=== PATIENT | female | born 1980 | race Caucasian/White ===

== ENCOUNTER 2023-12-30 18:20 | Emergency (ER) | payer OTHER, SELFPAY ==
[2023-12-30 18:24] VITALS: BP 157/99
[2023-12-30 19:01] LABS: % Basophils 0.3 % (0-2); % Eosinophils 0.2 % (0-6); % Immature Granulocytes 0.3 % (0-0.5); % Lymphocytes 4.4 % (20.5-51.1); % Monocytes 3.4 % (1.7-9.3); % Neutrophils 91.4 % (42.2-75.2); Absolute Lymphocytes 0.5 10^3/uL (1.2-3.4); Absolute Monocytes 0.4 10^3/uL (0.1-0.6); Absolute Neutrophils 9.5 10^3/uL (1.4-6.5); Hematocrit 41.5 % (37.0-47.0); Hemoglobin 14.2 g/dL (12.0-16.0); Mean Corp Hgb Conc. 34.2 g/dL (33.0-37.0); Mean Corpuscular Volume 84.7 fL (81.0-99.0); Mean Platelet Volume 9.5 fL (7.4-10.4); Nucleated Red Blood Cells % 0 %; Platelet Count 268 10^3/uL (130-400); Red Cell Dist. Width 13.2 % (11.5-14.5); White Blood Cell Count 10.4 10^3/uL (4.8-10.8)
[2023-12-30 19:05] LABS: INR 1.06; PT 13.6 Sec (11.4-14.6)
[2023-12-30 19:06] LABS: ALT (SGPT) 16 U/L (0-35); AST (SGOT) 25 U/L (14-36); Albumin 4.2 g/dl (3.5-5.0); Alkaline Phosphatase 58 U/L (38-126); Blood Urea Nitrogen 20 mg/dl (7-17); Calcium 9.1 mg/dl (8.4-10.2); Carbon Dioxide 21 mmol/L (22-30); Chloride 108 mmol/L (98-107); Glucose 105 mg/dl (70-99); Lipase 91 U/L (23-300); Potassium 3.6 mmol/L (3.5-5.1); Sodium 137 mmol/L (135-145); Total Bilirubin 0.7 mg/dl (0.2-1.3); Total Protein 7.2 g/dl (6.3-8.2); eGFR > 60.00
[2023-12-30 19:16] LABS: Troponin I < 0.012 ng/ml
[2023-12-30 21:55] VITALS: BMI 32.0
[2023-12-30 22:00] VITALS: BP 133/82
[2023-12-30] MEDS: NSS 1000 IV (22:15)
[2023-12-30] MEDS: MAALOX 45 PO (22:15)
[2023-12-30] MEDS: PROTONIX IV 40 MG IV (22:15)
[2023-12-30 23:00] VITALS: BP 132/86
--- NOTE | 2023-12-31 00:49 | ED.GENMED ---
History of Present Illness
General
Chief Complaint: Abdominal Pain
Source: patient
Exam Limitations: none
Time Seen by Provider: 12/30/23 20:53
Nursing documentation reviewed up to this point in time: agreed with
Travel History
Have you had any contact with someone who has COVID-19?: No
Do you have any symptoms of coronavirus? Fever > 100 degrees, chills, cough, shortness of breath, sore throat, loss of taste or smell, muscle aches, or headache?: No
History of Present Illness
History of Present Illness:
Patient status post cholecystectomy 3 years ago, presents ED secondary to recurrent upper abdominal pain associated nausea sensation as well as bloating over the past 2 days. Patient unfortunately has had number of similar symptoms since surgery,
and has number of outpatient CT scans. Patient has attempted to contact GI physician for an outpatient consultation, but receiving phone call for an appointment has been difficult. Denies fever or chills. Abdominal pain described as sharp, across
her abdomen, with intermittent bloating sensation. Patient states that her symptoms appear to be worse with certain meals. Symptoms are somewhat similar to when she had her gallbladder removed. Denies trauma. Denies recent change in medications
or diet.
Past History
Past History
ED Past Medical History: Asthma and Seizures
ED Past Surgical History: Other
Social History
Tobacco: Non-smoker
Drug: None
Personal:
Living: with family
Employment: Employed
Family History
Family History: Other
Review of Systems
Review of Systems
Allergies reviewed?: Yes
All Other Systems: ROS reviewed and negative except as documented in HPI and ROS
Constitutional: Reports no symptoms
EENT: Reports no symptoms
Respiratory: Reports no symptoms
Cardiac: Reports no symptoms
ABD/GI: Reports abdominal pain and nausea; Denies vomiting or diarrhea
: Reports no symptoms
Musculoskeletal: Reports no symptoms
Skin: Reports no symptoms
Neurological: Reports no symptoms
Phy Exam
Physical Exam
Physical Exam:
Physical Exam
General: no apparent distress, not acutely ill. afebrile.
Head: nc/at. eomi
Neck: supple. normal range of motion.
Heart: s1/s2 regular rate and rhythm, no murmur. equal radial pulses.
Lungs: no acute respiratory distress. clear bilaterally
Abdomen: normal bowel sounds. mild epigastric/RUQ tenderness to palpation.
Neuro: alert and oriented. no focal neurological deficits
Skin: no rash
Psychiatric: well kept. interactive and cooperative
Extremities: no edema. no calf tenderness.
Course
Orders/Labs/Results
Orders:
Orders
12/30/23 18:26
EKG [Electrocardiogram (*1)] Urgent
Reason for Study: Abdominal Pain
EKG- Treatment ONCE
12/30/23 18:35
Complete Blood Count/With Diff Urgent
Comprehensive Metabolic Panel Urgent
Lipase Urgent
Prothrombin Time Urgent
Troponin I Urgent
12/30/23 21:37
0.9% Sodium Chloride 1000 ml [Nss] 1,000 ml IV BOLUS
Mag Hydrox/Al Hydrox/Simeth [Maalox] 30 ml Phenobarb/Hyoscy/Atropine/Scop [] 10 ml Viscous Lidocaine 2% [Xylocaine Viscous Cup] 10 ml PO NOW
Pantoprazole [Protonix IV] 40 mg IV NOW STA
12/30/23 22:11
Mag Hydrox/Al Hydrox/Simeth [Maalox] 30 ml .ROUTE .STK-MED ONE
Phenobarb/Hyoscy/Atropine/Scop [] 10 ml .ROUTE .STK-MED ONE
12/30/23 22:12
Viscous Lidocaine 2% [Xylocaine Viscous Cup] 15 ml .ROUTE .STK-MED ONE
12/30/23 22:21
US Abdomen Complete/Upper Urgent
Comment:
Reason For Exam: RUQ pain
Abnormal Lab Results
12/30/23
18:35
Absolute Neuts (auto) 9.5 H 10^3/uL
(1.4-6.5)
Absolute Lymphs (auto) 0.5 L 10^3/uL
(1.2-3.4)
Neutrophils % 91.4 H %
(42.2-75.2)
Lymphocytes % 4.4 L %
(20.5-51.1)
Chloride 108 H mmol/L
(98-107)
Carbon Dioxide 21 L mmol/L
(22-30)
BUN 20 H mg/dl
(7-17)
Glucose 105 H mg/dl
(70-99)
12/30/23 18:35
12/30/23 18:35
Vital Signs
Initial and Last Documented VS:
Initial Vital Signs
Temp Pulse Resp BP Pulse Ox
97.9 F 110 17 157/99 99
12/30/23 18:24 12/30/23 18:24 12/30/23 18:24 12/30/23 18:24 12/30/23 18:24
Last Documented Vital Signs
Temp Pulse Resp BP Pulse Ox
97.9 F 82 17 132/86 97
12/30/23 18:24 12/30/23 23:00 12/30/23 23:00 12/30/23 23:00 12/30/23 23:00
MDM/Problems Addressed
MDM/Problems Addressed:
Patient's recent CT abdomen pelvis report reviewed.
Patient with an unremarkable workup in ED, including blood work and abdominal ultrasound. History and exam consistent with likely gastritis versus ulcer versus less likely remnants of gallstones. Otherwise, patient is afebrile, hemodynamically
stable, and appears comfortable at time of discharge. GI office contacted via [facility] for an urgent outpatient appointment. Advised to return to ED with worsening symptoms, i.e. fever/worsening pain/vomiting. In the meantime, advised dietary
modification, PPI, along with Carafate. Patient expresses understanding at time of discharge to the care of her family.
*Critical Care Note
Total Time (30-74mins, 75-104mins- exclusive of procedures): Not Applicable
ED Attending Note
-
Portions of this chart may have been created with voice recognition software.� Occasional wrong word or��sound alike� substitutions may have occurred due to the inherent limitations of voice recognition software.
Discharge Plan
Departure
Patient Disposition: Home (Routine Discharge)
Date of Disposition: 12/31/23
Time of Disposition: 00:49
Patient with high blood pressure during this ER visit?: Yes
Discharge Problem:
Abdominal pain
Instructions: [place] Diet, Gastritis (DC), Abdominal Pain
Prescriptions:
New
sucralfate [Carafate] 100 mg/mL suspension
10 ml PO QID Qty: 400 0RF
No Action
cetirizine 10 MG tablet
10 mg PO PRN PRN (Reason: allergies)
lamotrigine 25 MG tablet
125 mg PO BID
albuterol sulfate [Ventolin HFA] 90 MCG/PUFF HFA aerosol inhaler
2 puff inhalation PRN PRN (Reason: sob)
omeprazole 20 MG capsule,delayed release(DR/EC)
20 mg PO BID
tramadol 50 MG tablet
25 mg PO TID PRN (Reason: pain) Qty: 15 0RF
hydrocodone-acetaminophen 1 TABLET tablet
1 - 2 tab PO Q4HPRN PRN (Reason: moderate to severe pain) Qty: 20 0RF
Referrals:
Rere Baker MD [Active] -
Jose Arizmendi MD [Family Provider] -
Activity Restrictions/Additional Instructions:
As discussed, please follow-up with your primary care physician and/or referred GI physician for further evaluation. Your prescription has been sent electronically to [facility] in [place].
Interventions
Interventions:
*Risk Screen - Suicide Last Done: 12/30/23 18:25
*General Assessment Last Done: 12/30/23 18:25
*Neglect/Abuse Screening Last Done: 12/30/23 18:25
ED- Fall Risk Assessment Last Done: 12/30/23 21:55
*ED COVID-19 Vaccine History Last Done: 12/30/23 18:25
*Nursing Disposition Last Done: 12/31/23 01:15
AJ-Gsarvh-Btgkgnnoiy Assessment Last Done: 12/30/23 21:55
Discharge Date and Time
Discharge Date/Time: 12/31/23 01:16
Print Language: KOREAN
== END 2023-12-31 01:16 | disposition home or self-care (01) ==
LOC: EMR 18:20
PROVIDERS: Student in an Organized Health Care Education/Training Program; EMERGENCY PHYSICIAN Emergency Medicine; FAMILY PHYSICIAN Family Medicine
DX: R10.10 Upper abdominal pain, unspecified (principal); R03.0 Elevated blood-pressure reading, without diagnosis of hypertension
CPT/HCPCS: 99285; 96374; 76700; 80053; 83690; 84484; 85025; 85610; 93005

== ENCOUNTER → 2024-02-09 06:31 | Day surgery (SDC) | payer OTHER, SELFPAY | LOC: GI 06:31 | PROVIDERS: ATTENDING PHYSICIAN Internal Medicine | DX: Z12.11 Encounter for screening for malignant neoplasm of colon (principal); K62.89 Other specified diseases of anus and rectum; R14.0 Abdominal distension (gaseous); R10.13 Epigastric pain; D12.5 Benign neoplasm of sigmoid colon; K63.5 Polyp of colon; K29.50 Unspecified chronic gastritis without bleeding; K31.7 Polyp of stomach and duodenum; K44.9 Diaphragmatic hernia without obstruction or gangrene | CPT/HCPCS: 45385; 43239; 88305; 88342 ==

== ENCOUNTER 2025-01-05 21:46 | Observation (INO) | payer OTHER, SELFPAY ==
[2025-01-05] VITALS (9 sets, daily range): BP systolic 120–156; BP diastolic 72–103; BMI 29.3; BMI 28.3
[2025-01-05 14:36] LABS: % Basophils 0.2 % (0-2); % Immature Granulocytes 0.7 % (0-0.5); % Lymphocytes 4.5 % (20.5-51.1); % Monocytes 12.5 % (1.7-9.3); % Neutrophils 82.1 % (42.2-75.2); Absolute Lymphocytes 0.3 10^3/uL (1.2-3.4); Absolute Monocytes 0.7 10^3/uL (0.1-0.6); Absolute Neutrophils 4.6 10^3/uL (1.4-6.5); Hemoglobin 13.7 g/dL (12.0-16.0); Mean Corp Hgb Conc. 34.3 g/dL (33.0-37.0); Mean Corpuscular Hgb 28.9 pg (27.0-31.0); Mean Corpuscular Volume 84.4 fL (81.0-99.0); Mean Platelet Volume 9.4 fL (7.4-10.4); Nucleated Red Blood Cells % 0 %; Platelet Count 252 10^3/uL (130-400); Red Blood Cell Count 4.74 10^6/uL (4.20-5.40); Red Cell Dist. Width 13.2 % (11.5-14.5); White Blood Cell Count 5.6 10^3/uL (4.8-10.8)
[2025-01-05 14:57] LABS: ALT (SGPT) 16 U/L (0-35); AST (SGOT) 23 U/L (14-36); Albumin 4.5 g/dl (3.5-5.0); Alkaline Phosphatase 57 U/L (38-126); Blood Urea Nitrogen 17 mg/dl (7-17); Calcium 9.7 mg/dl (8.4-10.2); Carbon Dioxide 23 mmol/L (22-30); Chloride 106 mmol/L (98-107); Glucose 138 mg/dl (70-99); Lipase 92 U/L (23-300); Potassium 3.8 mmol/L (3.5-5.1); Sodium 137 mmol/L (135-145); Total Bilirubin 0.6 mg/dl (0.2-1.3); Total Protein 7.6 g/dl (6.3-8.2); eGFR > 60.00
[2025-01-05] MEDS: DILAUDID 0.5 MG IV ×3 (17:55→23:02)
[2025-01-05] MEDS: NSS 1000 IV ×2 (17:56→22:55)
[2025-01-05] MEDS: PROTONIX IV 40 MG IV (17:56)
[2025-01-05] MEDS: ZOFRAN 4 MG IV (17:56)
--- NOTE | 2025-01-05 18:00 | ED.GENMED ---
History of Present Illness
General
Chief Complaint: Abdominal Symptoms
Source: patient and family
Exam Limitations: none
Time Seen by Provider: 01/05/25 17:14
History of Present Illness
History of Present Illness:
44-year-old female presents with mid upper abdominal pain with nausea and vomiting, similar in the past when she had her gallbladder out, states after her gallbladder was that she had to go back and have a stone removed, she has also had a
colonoscopy with removal of polyps, does not drink or smoke does have seizures, has reflux as well, does feel some burning in her mid abdomen no chest pain, no lower abdominal pain
Past History
Past History
ED Past Medical History: Asthma and Seizures
ED Past Surgical History: Cholecystectomy
Social History
Tobacco: Non-smoker
Alcohol: None
Drug: None
Personal:
Living: with family
Employment: Employed
Family History
Family History: Other
Review of Systems
Review of Systems
All Other Systems: Not applicable
Constitutional: Denies fever or fatigue
EENT: Reports no symptoms
Respiratory: Reports no symptoms
Cardiac: Reports no symptoms
ABD/GI: Reports abdominal pain, nausea and vomiting
: Reports no symptoms
Musculoskeletal: Reports no symptoms
Skin: Reports no symptoms
Neurological: Reports no symptoms
Endocrine: Reports no symptoms
Phy Exam
Physical Exam
Physical Exam:
Physical Exam
General: no apparent distress, not acutely ill
Neck: No jaundice
Heart: s1/s2 regular rate and rhythm, no murmur. equal radial pulses.
Lungs: no acute respiratory distress. clear bilaterally
Abdomen: Soft mild epigastric tenderness no lower abdominal
Neuro: alert and oriented. no focal neurological deficits
Skin: no rash
Psychiatric: well kept. interactive and cooperative
Extremities: no edema. No calf pain
Course
Orders/Labs/Results
Orders:
Orders
01/05/25 14:10
Electrocardiogram (*1) Urgent
Reason for Study: Abdominal Pain
EKG- Treatment ONCE
01/05/25 14:28
Complete Blood Count/With Diff Urgent
Comprehensive Metabolic Panel Urgent
HCG, Serum Qualitative Screen Urgent
Comment: ADD ON
Lipase Urgent
01/05/25 17:41
CT Abd/pelvis W Iv Cont Urgent
Comment:
Reason For Exam: upper abdpain
0.9% Sodium Chloride 1000 ml [Nss] 1,000 ml IV BOLUS
HYDROmorphone [Dilaudid] 0.5 mg IV NOW STA
Ondansetron Injectable [Zofran] 4 mg IV NOW STA
Pantoprazole [Protonix IV] 40 mg IV NOW STA
01/05/25 17:53
Add On- LAB Urgent
Tests Added?: hcg qualitative
01/05/25 20:10
HYDROmorphone [Dilaudid] 0.5 mg IV NOW STA
Abnormal Lab Results
01/05/25
14:28
Absolute Lymphs (auto) 0.3 L 10^3/uL
(1.2-3.4)
Absolute Monos (auto) 0.7 H 10^3/uL
(0.1-0.6)
Immature Gran % 0.7 H %
(0-0.5)
Neutrophils % 82.1 H %
(42.2-75.2)
Lymphocytes % 4.5 L %
(20.5-51.1)
Monocytes % 12.5 H %
(1.7-9.3)
Glucose 138 H mg/dl
(70-99)
01/05/25 14:28
01/05/25 14:28
Vital Signs
Initial and Last Documented VS:
Initial Vital Signs
Temp Pulse Resp BP Pulse Ox
98.4 F 108 20 156/103 97
01/05/25 14:06 01/05/25 14:06 01/05/25 14:06 01/05/25 14:06 01/05/25 14:06
Last Documented Vital Signs
Temp Pulse Resp BP Pulse Ox
98.4 F 79 22 134/74 94
01/05/25 14:06 01/05/25 18:15 01/05/25 18:15 01/05/25 18:08 01/05/25 18:15
MDM/Problems Addressed
Differential Diagnosis Includes:
Gastritis pancreatitis duodenitis nonspecific abdominal pain, CBD stone, doubt ACS or PE
MDM/Problems Addressed:
Abdominal
Chronic conditions affecting care: Previous abdomnial surgery
Acute Exacerbation and/or Progression of Chronic Illness: Previous abdomnial surgery
*Radiology
Radiology exam reviewed: radiology read reviewed
*Pulse Oximetry
Patient hypoxic: no
Comment: 99
*EKG
Interpreted by ED Provider?: Yes
Interpretation: normal
Comparison EKG: no comparison EKG present
Heart Rate: 78
Rate: normal
Rhythm: sinus
Ischemia: no ischemia
*As400 Operator Interpretation
Rate: normal
Interpretation: normal
Heart Rate: 78
Rhythm: sinus
*Critical Care Note
Total Time (30-74mins, 75-104mins- exclusive of procedures): Not Applicable
Update Note
Update Note:
Update 8:10 PM labs noted EKG noted prior records briefly reviewed louise trujillo jed with subsequent ERCP for retained common duct stone tells me the symptoms are very similar to that, she is requiring several doses of pain meds,
ED Attending Note
-
Portions of this chart may have been created with voice recognition software.� Occasional wrong word or��sound alike� substitutions may have occurred due to the inherent limitations of voice recognition software.
Discharge Plan
Departure
Patient Disposition: Admit
Date of Disposition: 01/05/25
Time of Disposition: 20:25
Admit to: Med/Surg
Presentation/result/management discussed w/ accepting MD/DO: Hospitalist
Patient with high blood pressure during this ER visit?: No
Condition: Good
Discharge Problem:
Intractable abdominal pain
Prescriptions:
No Action
lamotrigine 25 MG tablet
125 mg PO BID
albuterol sulfate [Ventolin HFA] 90 MCG/PUFF HFA aerosol inhaler
2 puff inhalation PRN PRN (Reason: sob)
omeprazole 20 MG capsule,delayed release(DR/EC)
20 mg PO BID
Referrals:
Jose Arizmendi MD [Family Provider, Family Practice]
Interventions
Interventions:
*Risk Screen - Suicide Last Done: 01/05/25 14:06
*General Assessment Last Done: 01/05/25 14:06
*Neglect/Abuse Screening Last Done: 01/05/25 14:06
*ED- Fall Risk Assessment Last Done: 01/05/25 18:07
HV-Nsxcyv-Mkxzcvnfgm Assessment Last Done: 01/05/25 18:07
Discharge Date and Time
Print Language: ALBANIAN
[2025-01-05 18:45] LABS: HCG, Serum Qualitative Screen Negative
--- NOTE | 2025-01-05 21:01 | HPS.HSE ---
Family Physician
-
Family Physician: Jose Arizmendi
Chief Complaint
-
abdominal pain
History of Present Illness
Ms. Taylor Duvall is a 44 yo woman with hx asthma, seizures, s/p cholecystectomy 2020 presents to the ER with abdominal pain and nausea.
Pain started yesterday evening. She states it's similar to pain she had with prior CBD stone (post cholecystectomy). No fevers/chills. She hasn't been able to eat or drink well today. Pain stretches across mid abdomen and radiates mid sternal
area.
No shortness of breath. She had a normal BM today, passing gas. No black or bloody stools. No LE swelling.
She denies signfiicant NSAID use.
Medical History
Past Medical History
Past Medical History: Reports Asthma and Other (seizures)
Past Surgical History: Reports Cholecystectomy
Social History
Tobacco: Non-smoker
Alcohol: None
Family History
Family History: Not pertinent
Allergies / Home Medications
Allergies reflects when Allergies were last updated in [facility].
Home Medications with original date entered in [facility]
Allergy/Medication List:
Allergies
Allergy/AdvReac Type Severity Reaction Status Date / Time
adhesive tape Allergy Unknown Verified 01/05/25 14:06
seafood Allergy Rash Uncoded 01/05/25 14:06
Home Medications
albuterol sulfate 90 mcg/actuation aerosol inhaler (Ventolin HFA) 2 puff inhalation PRN PRN sob 03/15/20
lamotrigine 25 mg tablet 125 mg PO BID Seizures 03/15/20
omeprazole 20 mg capsule,delayed release 20 mg PO BID Gastrointestinal issue 02/19/21
Review of Systems
-
History Source: Patient
A 12 point ROS was completed and negative except as noted: Yes
Physical Exam
Vital Signs
Vital Signs
Temp Pulse Resp BP Pulse Ox
98.4 F 85 16 142/79 98
01/05/25 14:06 01/05/25 20:30 01/05/25 20:30 01/05/25 19:30 01/05/25 20:30
Physical Exam
General: No Apparent Distress
HEENT: PERRLA
Respiratory: Clear; No Wheezes
Cardiac: S1/S2 and Regular Rhythm
GI: Soft and Other (tenderness to palpation mid-epigastric region, no rebound or guarding )
Musculoskeletal: No Edema
Skin: Warm and Dry; No Rash
Neuro: AO x 3
Psych: Calm
Laboratory Results
-
01/05/25 14:28
01/05/25 14:28
Laboratory Results
Total Bilirubin 0.6 mg/dl (0.2-1.3) 01/05/25 14:28
AST 23 U/L (14-36) 01/05/25 14:28
ALT 16 U/L (0-35) 01/05/25 14:28
Alkaline Phosphatase 57 U/L (38-126) 01/05/25 14:28
Lipase 92 U/L (23-300) 01/05/25 14:28
Data Reviewed
-
Diagnostic Radiology: Report Reviewed by me
Lab Data: Labs Reviewed by me
Impression/Plan
-
Ms. Taylor Duvall is a 44 yo woman with hx asthma, seizures, s/p cholecystectomy 2020 presents to the ER with abdominal pain and nausea, poor PO intake.
Triage VS: T 98.4, P 108, RR 20, BP 156/103, Spo2 97%
LABS: WBC 5.6, Hg 13.7, PLT 252, Na 137, K+ 3.8, Cl 106, Cr 0.8, Glucose 138, T. Bili 0.6, AST 23, ALT 16, Alk Phos [address] A/P
IMPRESSION:
No intestinal obstruction or free air.
Prior cholecystectomy. Slight prominence of the intrahepatic biliary tract, stable, likely the sequela of prior cholecystectomy.
Tiny fat only containing umbilical hernia.
Intractable abdominal pain
-patient reports similar pain to prior CBD Stone but CT with stable appearance intrahepatic biliary tract and liver enzymes reasurring; will repeat CMP tomorrow
-concern for gastritis versus gastroenteritis
-trial of maalox now; IV Protonix BID
-IV Zofran PRN
-IV Dilaudid PRN
-clear liquid diet
-1L IVF overnight
-if pain persists tomorrow or abnl liver enzymes consider GI consult
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
Asthma - stable; PRN albuterol
DVT PPx Lovenox subQ
FULL CODE
[2025-01-05] MEDS: MAALOX 30 ML PO (21:39)
--- NOTE | 2025-01-05 22:50 | PTCARENOTE ---
Pt arrived onto floor @2250. Pt AAOx3 and able to walk into room without assistance. Pt with no complaints of SOB at this time. Pt oriented to room and call caba; will continue to monitor
[2025-01-06] VITALS (8 sets, daily range): BP systolic 115–133; BP diastolic 67–79
[2025-01-06] MEDS: DILAUDID 0.5 MG IV ×4 (04:24→22:41)
--- NOTE | 2025-01-06 07:06 | W.PN.HOSP.TC ---
Today's Communication/Plan
-
Abdominal Pain persists, given her history, consulted GI
Assessment / Plan
Assessment / Plan
Physical Exam
General: Not in acute distress
HEENT: Normocephalic
Respiratory: Clear to Auscultation Bilaterally
Cardiac: S1/S2 and Regular Rhythm
GI: Soft and Other (tenderness to palpation mid-epigastric region, and bilateral upper quadrants)
Musculoskeletal: No Edema
Skin: Warm and Dry
Neuro: AO x 3
Psych: Calm
Assessment/Plan
44 y/o female with past medical history of asthma, seizures, s/p cholecystectomy 2020 presents to the ER with abdominal pain and nausea, as well as poor PO intake. Pain started on the evening of 01/04/25. She states it's similar to pain she had
with prior CBD stone (post cholecystectomy). No fevers/chills. She had not been able to eat or drink well today. Pain stretched across mid abdomen and radiates mid sternal area. No shortness of breath. She had a normal BM on 01/05/25, passing
gas. No black or bloody stools. No LE swelling. She denied significant NSAID use.
Triage VS: T 98.4, P 108, RR 20, BP 156/103, Spo2 97%
LABS: WBC 5.6, Hg 13.7, PLT 252, Na 137, K+ 3.8, Cl 106, Cr 0.8, Glucose 138, T. Bili 0.6, AST 23, ALT 16, Alk Phos [address] A/P
IMPRESSION:
No intestinal obstruction or free air.
Prior cholecystectomy. Slight prominence of the intrahepatic biliary tract, stable, likely the sequela of prior cholecystectomy.
Tiny fat only containing umbilical hernia.
Intractable abdominal pain
-patient reports similar pain to prior CBD Stone but CT with stable appearance intrahepatic biliary tract and liver enzymes reassurring
-concern for gastritis versus gastroenteritis
-trial of maalox; IV Protonix BID
-IV Zofran PRN
-IV Dilaudid PRN
-clear liquid diet
-IV fluids given
-Pain has persisted, given patient's history and unremarkable CT findings, consulted GI
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
Asthma - stable; PRN albuterol
DVT PPx Lovenox subQ
FULL CODE
Anticipated Discharge: 24 - 48 hours
Subjective/Interval History
-
Date of Service: January 06, 2025
Patient was seen and examined. She reported her abdominal pain was coming back again this morning.
Objective Data
-
Labs:
Laboratory Results
01/06/25
06:57
WBC Pending
Hgb Pending
Hct Pending
Plt Count Pending
Sodium Pending
Potassium Pending
Chloride Pending
Carbon Dioxide Pending
BUN Pending
Creatinine Pending
Glucose Pending
Calcium Pending
Total Bilirubin Pending
AST Pending
ALT Pending
Alkaline Phosphatase Pending
Vital Signs:
Vital Signs
Temp Pulse Resp BP Pulse Ox
99.2 F 83 20 138/77 97
01/05/25 22:50 01/05/25 22:50 01/05/25 22:50 01/05/25 22:50 01/05/25 22:50
I&O
01/05/25 01/06/25 01/07/25
06:59 06:59 06:59
Intake Total 0 / 0
Balance 0 / 0
[2025-01-06 08:14] LABS: Hematocrit 39.1 % (37.0-47.0); Hemoglobin 13.3 g/dL (12.0-16.0); Mean Corpuscular Hgb 29.4 pg (27.0-31.0); Mean Corpuscular Volume 86.3 fL (81.0-99.0); Mean Platelet Volume 9.7 fL (7.4-10.4); Platelet Count 220 10^3/uL (130-400); Red Blood Cell Count 4.53 10^6/uL (4.20-5.40); Red Cell Dist. Width 13.6 % (11.5-14.5); White Blood Cell Count 4.6 10^3/uL (4.8-10.8)
[2025-01-06] MEDS: LAMICTAL 25 MG PO ×2 (08:19→20:14)
[2025-01-06] MEDS: PROTONIX IV 40 MG IV ×2 (08:20→20:15)
[2025-01-06] MEDS: NSS (PRESERVATIVE FREE) 10 ML IV ×2 (08:20→20:15)
[2025-01-06] MEDS: LAMICTAL 100 MG PO ×2 (08:20→20:14)
[2025-01-06 09:07] LABS: ALT (SGPT) 16 U/L (0-35); AST (SGOT) 28 U/L (14-36); Alkaline Phosphatase 51 U/L (38-126); Blood Urea Nitrogen 16 mg/dl (7-17); Calcium 8.4 mg/dl (8.4-10.2); Carbon Dioxide 23 mmol/L (22-30); Chloride 106 mmol/L (98-107); Estimated Creatinine Clearance 80 ml/min; Glucose 81 mg/dl (70-99); Magnesium 1.7 mg/dl (1.6-2.3); Potassium 4.2 mmol/L (3.5-5.1); Sodium 137 mmol/L (135-145); Total Bilirubin 0.5 mg/dl (0.2-1.3); Total Protein 6.8 g/dl (6.3-8.2); eGFR > 60.00
--- NOTE | 2025-01-06 11:09 | CM ---
CM met with pt at bedside to complete IA.
Pt resides with spouse and mother in private home.
Pt is independent with mobility and ADLs.
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
Employed at [employer].
PCP is Dr. Arizmendi and pharmacy [facility].
Plan: Discharge to home with no identified needs..
--- NOTE | 2025-01-06 12:39 | CON.GI ---
Addendum entered and electronically signed by Dayday Belle MD 01/06/25 13:58:
I saw and examined the patient.
The SENIOR SSIS DEVELOPER or PA's note was reviewed and I agree with the note.
Comment:
Pt is a 44 y /o woman with a hx of gallstones/cholecystectomy. She had an ERCP, egd and colonoscopy in past. No UGI findings except gastric polyps. She has diffuse upper abdominal d/c that radiates to the side for 2 days, improved with pain meds,
not relieved. No nsaids. negative lfts, lipase and CT
abd: soft, nontender
impression:
epigastric pain
emesis
plan:
egd
clears after egd
antispasmotic
IVF
pain meds as needed
Original Note:
Consultation
-
Date/Time Consultation Requested: 01/06/2025 0910
Date/Time Consultation Performed: 01/06/2025 1240
Requesting Provider: Carlin Hung MD
Performing Provider: SANDRO Dubose, Dayday Belle MD
Reason for Consultation: abdominal pain
Medical History
Chief Complaint / HPI
Chief Complaint: epigastric pain
History of Present Illness:
Pt is a 44yo with hx prior jed, ERCP with sphincterotomy with stone and sludge removal,seizure disorder, colon polyps, HH, gastric polyps, gastritis, umbilical hernia with onset of epigastric pain similar to prior jed. On admission noted with
normal LFT's and lipase and stable CT. Pain in present for about 2 days and constant. Better with pain meds and difficulty to say what makes or worse. She has very small amount of emesis with onset and denies dysphagia, GERD, diarrhea,
constipation or rectal bleeding. Hx EGD 2023 HH, gastric polyps, gastritis, normal duodenum and colonoscopy with mulitple TA and lymphoild polyp. No NSAID or steroid use. No new medications.
Past Medical History
Past Medical History: Asthma, Seizures (last seizure many years ago ) and Other (allergic rhinitis, gallstones, HH, gastritis, umbilical hernia, gastric polyps)
Past Surgical History: Cholecystectomy (with prior ERCP with sphincterotomy with sludge )
Social History
Tobacco: Non-Smoker
Alcohol: None
Drug: None
Personal:
Living: With Family
Family History
Family History: Other (? sister with GI issues )
Allergies / Home Medications
Allergy/AdvReac Type Severity Reaction Status Date / Time
adhesive tape Allergy Unknown Verified 01/05/25 14:06
seafood Allergy Rash Uncoded 01/05/25 14:06
�Medication �Instructions �Recorded
albuterol sulfate 90 mcg/actuation 2 puff inhalation PRN PRN sob 03/15/20
aerosol inhaler (Ventolin HFA)
lamotrigine 25 mg tablet 125 mg PO BID Seizures 03/15/20
omeprazole 20 mg capsule,delayed 20 mg PO BID Gastrointestinal issue 02/19/21
release
Review of Systems
-
History Source: Patient and Family
Constitutional: Reports Weight Loss (few lbs last 2 days )
EENT: Reports No Symptoms
Respiratory: Reports No Symptoms
Cardiac: Reports No Symptoms
Abdomen/GI: Reports Abdominal Pain, Nausea and Vomiting (small amount 2 days ago)
: Reports No Symptoms
Musculoskeletal: Reports No Symptoms
Skin: Reports No Symptoms
Neurological: Reports No Symptoms
Endocrine: Reports No Symptoms
Hematologic/Lymphatic: Reports No Symptoms
Vital Signs
Temp Pulse Resp BP Pulse Ox
98.8 F 80 16 122/77 97
01/06/25 07:00 01/06/25 07:00 01/06/25 07:00 01/06/25 07:00 01/06/25 07:00
Physical Exam
Exam
General: Well Developed, Well Nourished and No Apparent Distress
HEENT: Normocephalic and Anicteric
Respiratory: Clear
Cardiac: Regular Rhythm
GI: Soft and Tender (epigastric with upper abdominal fullness )
Musculoskeletal: No Clubbing and No Cyanosis
Skin: Warm and Dry
Neuro: Awake, Alert and AO x 3
Psych: Calm
Results
WBC 4.6 10^3/uL (4.8-10.8) L 01/06/25 06:57
Hgb 13.3 g/dL (12.0-16.0) 01/06/25 06:57
Hct 39.1 % (37.0-47.0) 01/06/25 06:57
MCV 86.3 fL (81.0-99.0) 01/06/25 06:57
Plt Count 220 10^3/uL (130-400) 01/06/25 06:57
Absolute Neuts (auto) 4.6 10^3/uL (1.4-6.5) 01/05/25 14:28
Sodium 137 mmol/L (135-145) 01/06/25 06:57
Potassium 4.2 mmol/L (3.5-5.1) 01/06/25 06:57
Chloride 106 mmol/L (98-107) 01/06/25 06:57
Carbon Dioxide 23 mmol/L (22-30) 01/06/25 06:57
BUN 16 mg/dl (7-17) 01/06/25 06:57
Creatinine 0.9 mg/dL (0.6-1.0) 01/06/25 06:57
Calcium 8.4 mg/dl (8.4-10.2) 01/06/25 06:57
Total Bilirubin 0.5 mg/dl (0.2-1.3) 01/06/25 06:57
AST 28 U/L (14-36) 01/06/25 06:57
ALT 16 U/L (0-35) 01/06/25 06:57
Alkaline Phosphatase 51 U/L (38-126) 01/06/25 06:57
Lipase 92 U/L (23-300) 01/05/25 14:28
Diagnostic Image Results:
01/05/25 CT Abd/pelvis W Iv Cont
No intestinal obstruction or free air.
Prior cholecystectomy. Slight prominence of the intrahepatic biliary tract, stable, likely the sequela of prior cholecystectomy.
Tiny fat only containing umbilical hernia.
Prior GI Procedures:
EGD: [facility] 02/2024 - Z-line regular, 38 cm from the incisors.
- 1 cm hiatal hernia.
- A few gastric polyps. One polyp resected and
retrieved.
- Gastritis. Biopsied.
- Normal examined duodenum. Biopsied
mild chronic inactive gastritis
Colonoscopy: [facility] excellent prep - The examined portion of the ileum was normal.
- One 4 mm polyp in the ascending colon, removed with
a cold snare. Resected and retrieved.
- One 3 mm polyp in the sigmoid colon, removed with a
cold snare. Complete resection. Polyp tissue not
retrieved.
- One 8 mm polyp in the distal sigmoid colon, removed
with a hot snare. Resected and retrieved.
- One 4 mm polyp in the distal sigmoid colon, removed
with a cold snare. Resected and retrieved.
- Anal papilla(e) were hypertrophied.
- The examination was otherwise normal on direct and
retroflexion views.
bx TA and polyp lymphoid
2020 ERCP with [facility]
- The major papilla appeared normal.
- A 10 mm biliary sphincterotomy was performed.
- The biliary tree was swept with an 8 mm balloon and
sludge was found.
- A pressure cholangiogram was performed and there was
no evidence of a bile leak.
Assessment / Plan
-
Pt is a 44yo with hx prior jed, ERCP with sphincterotomy with stone and sludge removal,seizure disorder, colon polyps, HH, gastric polyps, gastritis with onset of epigastric pain similar to prior jed. On admission noted with normal LFT's and
lipase and stable CT. Pain in present for about 2 days and constant. Better with pain meds and difficulty to say what makes or worse. She has very small amount of emesis with onset and denies dysphagia, GERD, diarrhea, constipation or rectal
bleeding. Hx EGD 2023 HH, gastric polyps, gastritis, normal duodenum and colonoscopy with mulitple TA and lymphoild polyp. No NSAID or steroid use. No new medications.
-epigastric pain
other med problems:
- prior jed with ERCP with sphincterotomy with stone and sludge removal
-seizure disorder
-colon polyps
-HH
-gastric polyps
-gastritis
PLAN:
etiology of pain related to gastritis, PUD vs biliary though no rise in LFT and stable CT vs other
plan for EGD today
if neg monitor pain
if continued symptom or rise in LFT 's or lipase consider MRCP vs repeat CT with oral contrast
NPO -- ok for clear diet after EGD
updated family
-
-
Thank you for consultation and allowing me to participate in the patient's care. Please call the business process consultant GI physician during the after hours with any questions or concerns.
[2025-01-06] MEDS: LOVENOX 40 MG SC (17:11)
[2025-01-06] MEDS: LEVSIN 0.125 MG PO ×2 (17:12→22:40)
[2025-01-06] MEDS: FLUSH (NSS) 1 FLUSH IV (20:15)
[2025-01-07] MEDS: DILAUDID 0.5 MG IV ×2 (04:52→17:03)
[2025-01-07 07:00] VITALS: BP 118/70
[2025-01-07] MEDS: LEVSIN 0.125 MG PO ×4 (07:32→22:44)
[2025-01-07] MEDS: LAMICTAL 100 MG PO ×2 (07:32→19:50)
[2025-01-07] MEDS: LAMICTAL 25 MG PO ×2 (07:33→19:50)
[2025-01-07] MEDS: NSS (PRESERVATIVE FREE) 10 ML IV ×2 (07:33→19:51)
[2025-01-07] MEDS: PROTONIX IV 40 MG IV ×2 (07:33→19:51)
[2025-01-07 08:26] LABS: Hematocrit 42.3 % (37.0-47.0); Hemoglobin 14.4 g/dL (12.0-16.0); Mean Corpuscular Hgb 29.1 pg (27.0-31.0); Mean Corpuscular Volume 85.5 fL (81.0-99.0); Mean Platelet Volume 10.1 fL (7.4-10.4); Platelet Count 204 10^3/uL (130-400); Red Blood Cell Count 4.95 10^6/uL (4.20-5.40); Red Cell Dist. Width 13.1 % (11.5-14.5); White Blood Cell Count 2.7 10^3/uL (4.8-10.8)
[2025-01-07 08:46] LABS: ALT (SGPT) 23 U/L (0-35); AST (SGOT) 40 U/L (14-36); Alkaline Phosphatase 52 U/L (38-126); Blood Urea Nitrogen 18 mg/dl (7-17); Calcium 9.2 mg/dl (8.4-10.2); Carbon Dioxide 27 mmol/L (22-30); Chloride 104 mmol/L (98-107); Estimated Creatinine Clearance 90 ml/min; Glucose 69 mg/dl (70-99); Potassium 4.4 mmol/L (3.5-5.1); Sodium 140 mmol/L (135-145); Total Bilirubin 0.4 mg/dl (0.2-1.3); eGFR > 60.00
--- NOTE | 2025-01-07 09:58 | W.PN.GI.CBS2 ---
Addendum entered and electronically signed by Dayday Belle MD 01/07/25 15:01:
I saw and examined the patient.
The THERAPEUTIC MENTOR or PA's note was reviewed and I agree with the note.
Comment:
Pt still having abdominal d/c,
abd: soft
impression:
abd pain
plan:
MRI/MRCP
if neg and symptoms still occurring then repeat CT but WITH oral contrast
continue hyoscyamine
Original Note:
Today's Communication / Plan
-
etiology of pain unclear
still with pain and vomiting today
no improvement with hyoscyamine
EGD with bile gastritis
cont PPI BID
AST minimal increased to [address] Belle for MRI vs CT with oral contrast
clear diet as tolerated
updated family
Assessment / Plan
-
Pt is a 44yo with hx prior jed, ERCP with sphincterotomy with stone and sludge removal,seizure disorder, colon polyps, HH, gastric polyps, gastritis with onset of epigastric pain similar to prior jed. On admission noted with normal LFT's and
lipase and stable CT. Pain in present for about 2 days and constant. Better with pain meds and difficulty to say what makes or worse. She has very small amount of emesis with onset and denies dysphagia, GERD, diarrhea, constipation or rectal
bleeding. Hx EGD 2023 HH, gastric polyps, gastritis, normal duodenum and colonoscopy with mulitple TA and lymphoild polyp. No NSAID or steroid use. No new medications.
01/06/25- EGD - Normal esophagus.- Bile gastritis. Biopsied - A few gastric polyps- Normal examined duodenum. Biopsied. bx pending
-epigastric pain
-bile gastritis/polyps on EGD
other med problems:
- prior jed with ERCP with sphincterotomy with stone and sludge removal
-seizure disorder
-colon polyps
-HH
-gastric polyps
-gastritis
PLAN:
etiology of pain unclear
still with pain and vomiting today
no improvement with hyoscyamine
EGD with bile gastritis
AST minimal increased to [address]
will [address] Belle for MRI vs CT with oral contrast
clear diet as tolerated
updated family
Subjective
Subjective
Date of Service: January 07, 2025
clear diet, only improvement in pain with pain med that last 2 1/2 hours but then recurs no improvement with antispasmotic
Objective
Data Reviewed
Laboratory Data:
Laboratory Results
01/07/25 07:26
01/07/25 07:28
Laboratory Results
Magnesium 1.7 mg/dl (1.6-2.3) 01/06/25 06:57
Total Bilirubin 0.4 mg/dl (0.2-1.3) 01/07/25 07:28
AST 40 U/L (14-36) H 01/07/25 07:28
ALT 23 U/L (0-35) 01/07/25 07:28
Alkaline Phosphatase 52 U/L (38-126) 01/07/25 07:28
Lipase 92 U/L (23-300) 01/05/25 14:28
Vital Signs and I&O:
Vital Signs
Temp Pulse Resp BP Pulse Ox
98.9 F 62 16 118/70 99
01/07/25 07:00 01/07/25 07:00 01/07/25 07:00 01/07/25 07:00 01/07/25 07:00
I&O
01/06/25 01/07/25 01/08/25
06:59 06:59 06:59
Intake Total 0 / 0 480 / 480
Balance 0 / 0 480 / 480
Physical Exam
Physical Exam
HEENT: Anicteric and Moist mucous membranes
Cardiology: Normal Sinus Rhythm
Pulmonary: Clear
GI: Soft, Non Distended and Tender (epigastric with slight less fullness )
Extremities: No Edema
Neuro: Non Focal
--- NOTE | 2025-01-07 14:31 | W.PN.HOSP.TC ---
Today's Communication/Plan
-
Please see below
Assessment / Plan
Assessment / Plan
Physical Exam
General: Not in acute distress
HEENT: Normocephalic
Respiratory: Clear to Auscultation Bilaterally
Cardiac: S1/S2 and Regular Rhythm
GI: Soft and Other (tenderness to palpation mid-epigastric region, and bilateral upper quadrants)
Musculoskeletal: No Edema
Skin: Warm and Dry
Neuro: AO x 3
Psych: Calm
Assessment/Plan
44 y/o female with past medical history of asthma, seizures, s/p cholecystectomy 2020 presents to the ER with abdominal pain and nausea, as well as poor PO intake. Pain started on the evening of 01/04/25. She states it's similar to pain she had
with prior CBD stone (post cholecystectomy). No fevers/chills. She had not been able to eat or drink well today. Pain stretched across mid abdomen and radiates mid sternal area. No shortness of breath. She had a normal BM on 01/05/25, passing
gas. No black or bloody stools. No LE swelling. She denied significant NSAID use.
Triage VS: T 98.4, P 108, RR 20, BP 156/103, Spo2 97%
LABS: WBC 5.6, Hg 13.7, PLT 252, Na 137, K+ 3.8, Cl 106, Cr 0.8, Glucose 138, T. Bili 0.6, AST 23, ALT 16, Alk Phos [address] A/P
IMPRESSION:
No intestinal obstruction or free air.
Prior cholecystectomy. Slight prominence of the intrahepatic biliary tract, stable, likely the sequela of prior cholecystectomy.
Tiny fat only containing umbilical hernia.
Intractable abdominal pain
-patient reports similar pain to prior CBD Stone but CT with stable appearance intrahepatic biliary tract and liver enzymes reassurring
-EGD with bile gastritis and a few gastric polyps
-Trial of Hyoscyamine given without improvement
-clear liquid diet
-MRI vs CT with oral contrast -- GI will advise
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
Asthma - stable; PRN albuterol
DVT PPx Lovenox subQ
FULL CODE
Anticipated Discharge: > 48 hours
Subjective/Interval History
-
Date of Service: January 07, 2025
Patient was seen and examined. She reported nausea, inability to tolerate oral intake and continued abdominal pain like yesterday.
Objective Data
-
Labs:
Laboratory Results
01/07/25 01/07/25
07:26 07:28
WBC 2.7 L
Hgb 14.4
Hct 42.3
Plt Count 204
Sodium 140
Potassium 4.4
Chloride 104
Carbon Dioxide 27
BUN 18 H
Creatinine 0.8
Glucose 69 L
Calcium 9.2
Total Bilirubin 0.4
AST 40 H
ALT 23
Alkaline Phosphatase 52
Vital Signs:
Vital Signs
Temp Pulse Resp BP Pulse Ox
98.9 F 62 16 118/70 99
01/07/25 07:00 01/07/25 07:00 01/07/25 07:00 01/07/25 07:00 01/07/25 07:00
I&O
01/06/25 01/07/25 01/08/25
06:59 06:59 06:59
Intake Total 0 / 0 480 / 480
Balance 0 / 0 480 / 480
[2025-01-07 15:07] VITALS: BP 113/76
--- NOTE | 2025-01-07 15:17 | CM ---
CM reviewed chart, patient seen bedside, OBS form verbally reviewed, provided with copy, placed on chart. Plan remains home no needs, will continue to follow for needs upon discharge.
Plan; home no needs likely
[2025-01-07] MEDS: LOVENOX 40 MG SC (17:02)
[2025-01-07] MEDS: FLUSH (NSS) 1 FLUSH IV ×2 (19:51→19:53)
[2025-01-07 23:14] VITALS: BP 121/74
--- NOTE | 2025-01-08 05:54 | PTCARENOTE ---
Pt. voided in the toilet, had some bright red blood, R.N. asked pt. if it was her menses, pt. replied she didn't think so because she had it not too long ago.
[2025-01-08 07:08] LABS: % Basophils 0.3 % (0-2); % Lymphocytes 40.9 % (20.5-51.1); % Monocytes 13.1 % (1.7-9.3); % Neutrophils 44.7 % (42.2-75.2); Absolute Lymphocytes 1.2 10^3/uL (1.2-3.4); Absolute Monocytes 0.4 10^3/uL (0.1-0.6); Absolute Neutrophils 1.3 10^3/uL (1.4-6.5); Hematocrit 47.7 % (37.0-47.0); Hemoglobin 16.3 g/dL (12.0-16.0); Mean Corp Hgb Conc. 34.2 g/dL (33.0-37.0); Mean Corpuscular Volume 84.9 fL (81.0-99.0); Mean Platelet Volume 9.9 fL (7.4-10.4); Nucleated Red Blood Cells % 0 %; Platelet Count 232 10^3/uL (130-400); Red Blood Cell Count 5.62 10^6/uL (4.20-5.40); Red Cell Dist. Width 13.1 % (11.5-14.5); White Blood Cell Count 2.9 10^3/uL (4.8-10.8)
[2025-01-08] MEDS: LAMICTAL 100 MG PO ×2 (07:19→19:53)
[2025-01-08] MEDS: LAMICTAL 25 MG PO ×2 (07:19→19:53)
[2025-01-08 07:20] LABS: ALT (SGPT) 28 U/L (0-35); AST (SGOT) 49 U/L (14-36); Albumin 4.8 g/dl (3.5-5.0); Alkaline Phosphatase 56 U/L (38-126); Blood Urea Nitrogen 20 mg/dl (7-17); Calcium 9.3 mg/dl (8.4-10.2); Carbon Dioxide 24 mmol/L (22-30); Chloride 103 mmol/L (98-107); Estimated Creatinine Clearance 80 ml/min; Glucose 67 mg/dl (70-99); Magnesium 2.2 mg/dl (1.6-2.3); Potassium 3.9 mmol/L (3.5-5.1); Sodium 140 mmol/L (135-145); Total Bilirubin 0.6 mg/dl (0.2-1.3); Total Protein 8.4 g/dl (6.3-8.2); eGFR > 60.00
[2025-01-08] MEDS: NSS (PRESERVATIVE FREE) 10 ML IV ×2 (07:20→19:53)
[2025-01-08] MEDS: PROTONIX IV 40 MG IV ×2 (07:20→19:52)
[2025-01-08] MEDS: LEVSIN 0.125 MG PO ×3 (07:23→21:31)
[2025-01-08 07:30] VITALS: BP 128/83
--- NOTE | 2025-01-08 08:51 | W.PN.HOSP.TC ---
Today's Communication/Plan
-
New Hematuria
Rocephin for suspected UTI
Still in significant pain
Assessment / Plan
Assessment / Plan
Physical Exam
General: Not in acute distress
HEENT: Normocephalic
Respiratory: Clear to Auscultation Bilaterally
Cardiac: S1/S2 and Regular Rhythm
GI: Soft and Other (tenderness to palpation mid-epigastric region, and bilateral upper quadrants)
Musculoskeletal: No Edema
Skin: Warm and Dry
Neuro: AO x 3
Psych: Calm
Assessment/Plan
44 y/o female with past medical history of asthma, seizures, s/p cholecystectomy 2020 presents to the ER with abdominal pain and nausea, as well as poor PO intake. Pain started on the evening of 01/04/25. She states it's similar to pain she had
with prior CBD stone (post cholecystectomy). No fevers/chills. She had not been able to eat or drink well today. Pain stretched across mid abdomen and radiates mid sternal area. No shortness of breath. She had a normal BM on 01/05/25, passing
gas. No black or bloody stools. No LE swelling. She denied significant NSAID use.
Triage VS: T 98.4, P 108, RR 20, BP 156/103, Spo2 97%
LABS: WBC 5.6, Hg 13.7, PLT 252, Na 137, K+ 3.8, Cl 106, Cr 0.8, Glucose 138, T. Bili 0.6, AST 23, ALT 16, Alk Phos [address] A/P
IMPRESSION:
No intestinal obstruction or free air.
Prior cholecystectomy. Slight prominence of the intrahepatic biliary tract, stable, likely the sequela of prior cholecystectomy.
Tiny fat only containing umbilical hernia.
Intractable abdominal pain -- suspected from Fatty Liver
-patient reports similar pain to prior CBD Stone but CT with stable appearance intrahepatic biliary tract and liver enzymes reassurring
-EGD with bile gastritis and a few gastric polyps
-Trial of Hyoscyamine given without improvement
-Repeat CT from 01/08/25 unrevealing for acute problems
Hematuria
Dysuria
CVA Tenderness
-CT Abdomen Pelvis repeated today 01/08/25 given patient has right-sided abdominal and flank pain going to groin
-No pyelonephritis or kidney stones on CT Imaging
-Urine and blood cultures pending
-Rocephin
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
Asthma - stable; PRN albuterol
DVT PPx Lovenox subQ
FULL CODE
Anticipated Discharge: 24 - 48 hours
Subjective/Interval History
-
Date of Service: January 08, 2025
Patient was seen and examined. She reported blood in her urine and burning with urination this morning.
Objective Data
-
Labs:
Laboratory Results
01/08/25
06:00
WBC 2.9 L
Hgb 16.3 H
Hct 47.7 H
Plt Count 232
Sodium 140
Potassium 3.9
Chloride 103
Carbon Dioxide 24
BUN 20 H
Creatinine 0.9
Glucose 67 L
Calcium 9.3
Total Bilirubin 0.6
AST 49 H
ALT 28
Alkaline Phosphatase 56
Vital Signs:
Vital Signs
Temp Pulse Resp BP Pulse Ox
98.0 F 85 16 128/83 98
01/08/25 07:30 01/08/25 07:30 01/08/25 07:30 01/08/25 07:30 01/08/25 07:30
I&O
01/07/25 01/08/25 01/09/25
06:59 06:59 06:59
Intake Total 480 / 480 720 / 720
Balance 480 / 480 720 / 720
[2025-01-08 10:48] LABS: Urine Albumin 3+ (Neg - Trace); Urine Bilirubin Negative (Negative); Urine Character Slightly Cloudy (Clear); Urine Color Brown; Urine Glucose Negative (Negative); Urine Ketone 3+ (Negative); Urine Leukocyte 1+ (Negative); Urine Nitrite Negative (Negative); Urine Occult Blood 4+ (Negative); Urine Specific Gravity 1.015 (<1.030); Urine Urobilinogen Negative (Neg - 1+)
[2025-01-08 11:21] LABS: Urine Red Blood Cell 50-60 /HPF (0-2)
[2025-01-08 11:22] LABS: Urine Bacteria Few (Negative)
--- NOTE | 2025-01-08 11:24 | W.PN.GI.CBS2 ---
Today's Communication / Plan
-
w/u for hematuria, no other GI input
Assessment / Plan
-
Pt is a 44yo with hx prior jed, ERCP with sphincterotomy with stone and sludge removal,seizure disorder, colon polyps, HH, gastric polyps, gastritis with onset of epigastric pain similar to prior jed. On admission noted with normal LFT's and
lipase and stable CT. Pain in present for about 2 days and constant. Better with pain meds and difficulty to say what makes or worse. She has very small amount of emesis with onset and denies dysphagia, GERD, diarrhea, constipation or rectal
bleeding. Hx EGD 2023 HH, gastric polyps, gastritis, normal duodenum and colonoscopy with mulitple TA and lymphoild polyp. No NSAID or steroid use. No new medications.
01/06/25- EGD - Normal esophagus.- Bile gastritis. Biopsied - A few gastric polyps- Normal examined duodenum. Biopsied. bx pending
-epigastric pain
-bile gastritis/polyps on EGD
other med problems:
- prior jed with ERCP with sphincterotomy with stone and sludge removal
-seizure disorder
-colon polyps
-HH
-gastric polyps
-gastritis
PLAN:
- mild upper abd d/c and mild alt increase likely secondary to known fatty liver; needs weight loss and diet. can f/u as outpatient electively (not urgent, routine)
- lower abd d/c, hematuria and abnormal UA (with rbcs, protein), Ct unrevealing. urology best to comment
- EGD bx pending
- antiemetics, oral as tolerated
- no other GI input will sign off
Subjective
Subjective
Date of Service: January 08, 2025
Pt with more lower abd pain and hematuria today
Objective
Data Reviewed
Laboratory Data:
Laboratory Results
01/08/25 06:00
01/08/25 06:00
Laboratory Results
Magnesium 2.2 mg/dl (1.6-2.3) 01/08/25 06:00
Total Bilirubin 0.6 mg/dl (0.2-1.3) 01/08/25 06:00
AST 49 U/L (14-36) H 01/08/25 06:00
ALT 28 U/L (0-35) 01/08/25 06:00
Alkaline Phosphatase 56 U/L (38-126) 01/08/25 06:00
Lipase 92 U/L (23-300) 01/05/25 14:28
Vital Signs and I&O:
Vital Signs
Temp Pulse Resp BP Pulse Ox
98.0 F 85 16 128/83 98
01/08/25 07:30 01/08/25 07:30 01/08/25 07:30 01/08/25 07:30 01/08/25 07:30
I&O
01/07/25 01/08/25 01/09/25
06:59 06:59 06:59
Intake Total 480 / 480 720 / 720
Balance 480 / 480 720 / 720
Physical Exam
Physical Exam
GI: Soft, Non Distended and Tender (mild lower abdominal tenderness, mild upper)
Neuro: Non Focal
[2025-01-08] MEDS: LEVSIN PO (11:50)
[2025-01-08] MEDS: NSS 500 IV (12:13)
--- NOTE | 2025-01-08 12:26 | VATNOTE ---
During routine rounds, pt states she has some discomfort at her IV site. Upon inspection no redness or swelling noted. Offered to place new PIV and remove old. Pt declined. Education provided about phlebitis and heat applied to IV site. Informed pt
she could have PCN call me back if she changes her mind about restarting PIV. PCN aware.
[2025-01-08 15:19] VITALS: BP 130/68
[2025-01-08] MEDS: LOVENOX 40 MG SC (16:53)
[2025-01-08 23:28] VITALS: BP 119/73
[2025-01-09] MEDS: LEVSIN 0.125 MG PO ×2 (06:27→11:38)
[2025-01-09 07:00] VITALS: BP 122/74
[2025-01-09 08:11] LABS: % Basophils 0.4 % (0-2); % Eosinophils 0.8 % (0-6); % Immature Granulocytes 0.4 % (0-0.5); % Lymphocytes 43.4 % (20.5-51.1); % Monocytes 13.5 % (1.7-9.3); % Neutrophils 41.5 % (42.2-75.2); Absolute Lymphocytes 1.1 10^3/uL (1.2-3.4); Absolute Monocytes 0.3 10^3/uL (0.1-0.6); Hematocrit 42.5 % (37.0-47.0); Hemoglobin 14.8 g/dL (12.0-16.0); Mean Corp Hgb Conc. 34.8 g/dL (33.0-37.0); Mean Corpuscular Hgb 28.6 pg (27.0-31.0); Mean Platelet Volume 9.9 fL (7.4-10.4); Nucleated Red Blood Cells % 0 %; Platelet Count 193 10^3/uL (130-400); Red Blood Cell Count 5.18 10^6/uL (4.20-5.40); White Blood Cell Count 2.4 10^3/uL (4.8-10.8)
[2025-01-09] MEDS: LAMICTAL 25 MG PO (08:43)
[2025-01-09] MEDS: PROTONIX IV 40 MG IV (08:44)
[2025-01-09] MEDS: LAMICTAL 100 MG PO (08:44)
[2025-01-09] MEDS: NSS (PRESERVATIVE FREE) 10 ML IV (08:44)
[2025-01-09 08:45] LABS: ALT (SGPT) 23 U/L (0-35); AST (SGOT) 41 U/L (14-36); Alkaline Phosphatase 48 U/L (38-126); Blood Urea Nitrogen 20 mg/dl (7-17); Calcium 9.1 mg/dl (8.4-10.2); Carbon Dioxide 20 mmol/L (22-30); Chloride 110 mmol/L (98-107); Estimated Creatinine Clearance 103 ml/min; Glucose 73 mg/dl (70-99); Potassium 4.2 mmol/L (3.5-5.1); Sodium 140 mmol/L (135-145); Total Bilirubin 0.5 mg/dl (0.2-1.3); eGFR > 60.00
--- NOTE | 2025-01-09 10:57 | W.PN.HOSP.TC ---
Today's Communication/Plan
-
Discharge
Assessment / Plan
Assessment / Plan
Gen-AAOx3, NAD
HEENT-NC, AT, anicteric, clear oral mm
Neck-supple
CV-reg, no M, +S1/S2
Lungs-clear B/L
Abd-soft, mild epigastric tenderness, mild left flank tenderness
Ext-no edema
Musculoskeletal-no cyanosis, clubbing
Skin-warm and dry
Neuro-grossly non-focal
Psych-calm, cooperative
Intractable abdominal pain --unclear etiology. No concerning findings on imaging. Recommend weight loss and outpatient follow-up with PCP.
-patient reports similar pain to prior CBD Stone but CT with stable appearance intrahepatic biliary tract and liver enzymes reassuring
-EGD with bile gastritis and a few gastric polyps
-Trial of Hyoscyamine given without improvement
-Repeat CT from 01/08/25 unrevealing for acute problems
Hematuria -difficult to interpret given that she currently is having her menses. Discussed with patient to repeat urinalysis next week after completion of menses through her primary care doctor.
Dysuria
CVA Tenderness
No evidence of UTI based on urine culture.
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
Asthma - stable; PRN albuterol
DVT PPx Lovenox subQ
FULL CODE
Dispo -medically stable for discharge. Outpatient follow-up.
Anticipated Discharge: Today
Subjective/Interval History
-
Date of Service: January 09, 2025
Patient seen and examined, mild epigastric and left flank pain.
Objective Data
-
Labs:
Laboratory Results
01/09/25
07:17
WBC 2.4 L*
Hgb 14.8
Hct 42.5
Plt Count 193
Sodium 140
Potassium 4.2
Chloride 110 H
Carbon Dioxide 20 L
BUN 20 H
Creatinine 0.7
Glucose 73
Calcium 9.1
Total Bilirubin 0.5
AST 41 H
ALT 23
Alkaline Phosphatase 48
Vital Signs:
Vital Signs
Temp Pulse Resp BP Pulse Ox
97.8 F 62 18 122/74 100
01/09/25 07:00 01/09/25 07:00 01/09/25 07:00 01/09/25 07:00 01/09/25 07:00
I&O
01/08/25 01/09/25 01/10/25
06:59 06:59 06:59
Intake Total 720 / 720 1500 / 1500
Balance 720 / 720 1500 / 1500
Review of Systems
-
History Source: Patient
All other systems: Reviewed and negative
--- NOTE | 2025-01-09 11:03 | W.DS.TRANS ---
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
-
Discharge Instructions:
Discharge Diagnosis/Procedures Abdominal pain
Diet Regular
Activity As tolerated
Driving Restrictions As prior to admission
Bathing Restrictions None
Instructions:
Stand-Alone Forms:
Changes to Home Medications: No
Discharge Medications:
DC Medications w/original date entered in [employer]
albuterol sulfate 90 mcg/actuation aerosol inhaler (Ventolin HFA) 2 puff inhalation PRN PRN sob 03/15/20
lamotrigine 25 mg tablet 125 mg PO BID Seizures 03/15/20
omeprazole 20 mg capsule,delayed release 20 mg PO BID Gastrointestinal issue 02/19/21
hyoscyamine sulfate 0.125 mg sublingual tablet 0.125 mg PO ACHS #30 tabs 01/09/25
Home Medication Changes
Pending Results: No
--- NOTE | 2025-01-09 11:19 | CM ---
CM reviewed chart, patient seen bedside, for discharge today. Plan remains home, no needs. CM will continue to follow for all discharge planning needs.
Plan; home no needs.
[2025-01-09 12:12] VITALS: BP 127/80
== END 2025-01-09 12:44 | disposition home or self-care (01) ==
LOC: 4 WEST ACU 21:46
PROVIDERS: Hospitalist; Nurse Practitioner Adult Health; ADMITTING PHYSICIAN Student in an Organized Health Care Education/Training Program; ATTENDING PHYSICIAN Hospitalist; CONSULT PHYSICIAN Internal Medicine; EMERGENCY PHYSICIAN Emergency Medicine; FAMILY PHYSICIAN Family Medicine
PROC: 0DB98ZX Excision of Duodenum, Via Natural or Artificial Opening Endoscopic, Diagnostic (ICD-10-PCS; 2025-01-06)
PROC: 0DB58ZX Excision of Esophagus, Via Natural or Artificial Opening Endoscopic, Diagnostic (ICD-10-PCS; 2025-01-06)
DX: R10.10 Upper abdominal pain, unspecified (principal); G40.909 Epilepsy, unspecified, not intractable, without status epilepticus; J45.909 Unspecified asthma, uncomplicated; K29.70 Gastritis, unspecified, without bleeding; K31.7 Polyp of stomach and duodenum; R31.9 Hematuria, unspecified
CPT/HCPCS: 43239; 88305; 74177; 74178; 74183; 80053; 81003; 81015; 83690; 83735; 84703; 85025; 85027; 87040; 87086; 88342; 93005; 96361; 96374; 96375; 96376; 99285; A9575; G0378; Q9967